=== PATIENT | female | born 2000 | race Caucasian/White ===

== ENCOUNTER 2022-05-26 14:50 | Outpatient (CLI) | payer OTHER, SELFPAY | END 2022-05-26 14:51 | disposition home or self-care (01) | LOC: NFLDREF 14:51 | PROVIDERS: PCP Family Medicine; Visit Provider Advanced Practice Midwife | DX: N94.6 Dysmenorrhea, unspecified (principal); Z12.4 Encounter for screening for malignant neoplasm of cervix | CPT/HCPCS: 88174 ==